=== PATIENT | male | born 1930 | race Caucasian/White ===

== ENCOUNTER 2017-04-22 10:56 | Outpatient (CLI) | payer MEDICARE, OTHER ==
--- NOTE | 2017-04-22 13:05 | RAD ---
CHEST PA AND LATERAL: History: 86-year-old male with dyspnea. Comparison: 10-22-16 FINDINGS: Marked hyperinflation and chronic lung changes. Atherosclerosis of the aorta with some ectasia. No co nfluent pneumonia, overt edema, or pleural effusion. IMPRESSION: Marked stable hyperinflation and chronic lung changes. No acute evidence of intrathoracic disease. POS: [facility]
== END 2017-04-22 10:57 | disposition home or self-care (01) ==
LOC: RAD 10:56
PROVIDERS: ATTEND Internal Medicine Critical Care Medicine
DX: R06.00 Dyspnea, unspecified (principal); J98.4 Other disorders of lung
CPT/HCPCS: 71020

== ENCOUNTER 2018-02-25 11:15 | Outpatient (CLI) | payer MEDICARE, OTHER ==
--- NOTE | 2018-02-25 11:54 | RAD ---
CHEST TWO VIEWS: HISTORY: Dyspnea. COMPARISON: 04/22/2017 FINDINGS: Heart size is within normal limits. There are atherosclerotic changes of the aorta. The lungs show some chronic change. There is kyphotic deformity to the spine. Flattening of the hemidiaphragms is present. IMPRESSION: Stable overall examination. POS: [facility]
== END 2018-02-25 11:16 | disposition home or self-care (01) ==
LOC: RAD 11:15
PROVIDERS: ATTEND Internal Medicine Critical Care Medicine
DX: R06.00 Dyspnea, unspecified (principal)
CPT/HCPCS: 71046

== ENCOUNTER 2018-10-02 10:30 | Outpatient (CLI) | payer MEDICARE, OTHER ==
[2018-10-02] MEDS ORDERED: Gadobenate Dimeglumine 529 MG/1 ML (20ML VIAL) ONE (11:04)
--- NOTE | 2018-10-02 13:07 | MRI ---
MRI Abdomen W WO Con History: [D 30.00 benign neoplasm of kidney unspecified] Comparison: CT abdomen and pelvis without contrast 2016 Findings: Moderate sliding hiatal hernia. Spleen is unremarkable. Aortic contour is nonaneurysmal. There is focal ectasia of the main pancreatic duct with an internal septation. A benign fat-containing mass interpolar left kidney is similar in size to the examination from 2010. Mild prominence of the right renal collecting system without hydroureter. No abnormal renal enhancing mass. Liver is unremarkable. Spleen is unremarkable. Adrenal glands are unremarkable. Levoscoliosis lumbar spine. No retroperitoneal adenopathy. No dilated loops of bowel the upper abdomen. Impression: 1. 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 2. Focal ectasia of the pancreatic duct at the pancreatic head with a single internal septation. Give n patient age, no follow-up is required although if clinically warranted, follow-up MRI can be performed in one year. Mesentery. Moderate size sliding hiatal hernia. 4. Mild prominence of the right renal collecting system, similar to prior examinations, without hydro ureter.
== END 2018-10-02 10:31 | disposition home or self-care (01) ==
LOC: BICMRI 10:30
PROVIDERS: ATTEND Urology
DX: D30.02 Benign neoplasm of left kidney (principal); K44.9 Diaphragmatic hernia without obstruction or gangrene; K86.89 Other specified diseases of pancreas
CPT/HCPCS: 74183; 82565; A9577

== ENCOUNTER 2019-01-12 14:20 | Inpatient (IN) | payer MEDICARE, OTHER ==
[2019-01-12 14:59] LABS: #Lymphocytes 1.3 thou/uL (1.20-3.40); #Monocytes 1.8 thou/uL (0.11-0.59); #Neutrophils 16.7 thou/uL (1.40-6.50); %Basophils 0.1 % (0.0-1.0); %Eosinophils 0.2 % (0.0-10.0); %Lymphocytes 6.4 % (21.0-51.0); %Neutrophils 84.3 % (42.0-75.0); Hemoglobin 15.8 g/dL (14.0-18.0); Mean Corpuscular HGB CONC 33.1 g/dL (32.0-36.0); Mean Corpuscular Hemoglobin 27.9 pg (27.0-31.0); Mean Corpuscular Volume 84.1 fL (78.0-98.0); Mean Platelet Volume 6.8 fL (7.4-10.4); Platelet Count 258 thou/uL (130-400); RBC Distribution Width 13.3 % (11.5-14.5); Red Blood Cell (RBC) Count 5.68 mill/uL (4.70-6.10); White Blood Cell (WBC) Count 19.8 thou/uL (4.8-10.8)
--- NOTE | 2019-01-12 15:17 | RAD ---
EXAM: Chest PA and lateral: HISTORY: Pharyngitis. COMPARISON: 02/25/2018 FINDINGS: Heart: Normal cardiac silhouette Aorta: Elongation of the aorta, unchanged Pulmonary vessels: Normal Costophrenic angles: Costophrenic angles are clear. Lungs: Inflation, chronic changes. Calcified granuloma in the left infrahilar region. Pneumothorax: No pneumothorax Osseous structures: No acute osseous abnormalities. IMPRESSION: 1. Hyperinflation. Chronic changes.
[2019-01-12 15:18] LABS: Anion Gap 16 mmol/L (10-20); BUN (Urea Nitrogen) 14 mg/dL (8.4-25.7); Calc. Creatinine Clearance 0 mL/min (70-130); Carbon Dioxide 19 mmol/L (23-31); Chloride 107 mmol/L (98-107); Estimated GFR-MDRD 61; Glucose 114 mg/dL (83-110); Sodium 138 mmol/L (136-145)
[2019-01-12] MEDS ORDERED: Ampicillin/Sulbactam 3 GM in Sodium Chloride 0.9% 100 ML IVPB ONE (16:30)
[2019-01-12 16:39] LABS: Bacteria/HPF None Seen HPF (None Seen); Bilirubin Negative (Negative); Blood, Urine 2+ (Negative); Clarity Clear (Clear); Glucose, Urine (Dipstick) Normal (Negative); Leukocyte Negative Leu/uL (Negative); Mucous/LPF 1+ LPF (<2+); Nitrite Negative (Negative); Protein, Urine (Dipstick) 100 mg/dL (Neg-Trace); RBC/HPF 0-3 HPF (0-3); Squamous Epithelial 0-3 HPF (0-3); Urobilinogen Normal mg/dL (Less than 2)
[2019-01-12 20:52] LABS: Lactic Acid 1.5 mmol/L (0.5-2.2)
[2019-01-12] MEDS ORDERED: Ondansetron PF 4 MG/2 ML Vial IVP PRN (21:27)
[2019-01-12] MEDS ORDERED: cloNIDine 0.1 MG TAB PO PRN (21:27)
[2019-01-12] MEDS ORDERED: Bisacodyl 10 MG SUPP PR PRN (21:27)
[2019-01-12] MEDS ORDERED: Sodium Chloride 0.65% Nasal 44 ML BOT EA NARE PRN (21:27)
[2019-01-12] MEDS ORDERED: hydrALAZINE 20 MG/ML VIAL SLOW IVP PRN (21:27)
[2019-01-12] MEDS ORDERED: Senokot S 8.6-50 MG TAB PO PRN (21:27)
[2019-01-12] MEDS ORDERED: Diabetic Tussin 200 MG/10 ML UDCUP PO PRN (21:27)
[2019-01-12] MEDS ORDERED: Acetaminophen 325 MG TAB PO PRN (21:27)
[2019-01-12] MEDS ORDERED: Artificial Tears 18 DROP/0.9 ML EA EYE PRN (21:27)
[2019-01-12] MEDS ORDERED: Ondansetron ODT 4 MG TAB PO PRN (21:27)
[2019-01-12] MEDS ORDERED: Zolpidem Tartrate 5 MG TAB PO PRN (21:27)
[2019-01-12] MEDS ORDERED: HYDROcodone/Acetaminophen 5/325 mg Tablet PO PRN (21:27)
[2019-01-12] MEDS ORDERED: Cepastat Lozenges 1 LOZ PO PRN (21:27)
[2019-01-12] MEDS ORDERED: Loperamide HCl 2 MG CAP PO PRN (21:27)
[2019-01-12] MEDS ORDERED: Labetalol HCl 100 MG/20 ML VIAL SLOW IVP PRN (21:27)
[2019-01-12] MEDS ORDERED: Vancomycin HCl 1.5 GM in Sodium Chloride 0.9% 250 ML 300 ML IVPB SCH (22:15)
[2019-01-12 22:22] VITALS: BMI 24.1
--- NOTE | 2019-01-12 22:37 | HP ---
PRIMARY CARE PHYSICIAN: Chelle Morelos MD REASON FOR ADMISSION: Aspiration pneumonia. HISTORY OF PRESENT ILLNESS: This is an 88-year-old male, who has gastroesophageal reflux disease. The patient has chronic cough productive of yellowish green sputum. Lately, his cough significantly increased. He was experiencing shortness of breath. As per report, the patient had radiation therapy. As the patient was having increasing amount of cough and shortness of breath and that is why he was trying to see his primary care physician, but the patient was sent to emergency room for evaluation. The patient was having significant amount of productive cough. The patient appeared chronically ill. He was hard of hearing. History was very limited from the patient. He was febrile in the emergency room. He was tachycardic, hypertensive, but saturating normal. His chest x-ray showed chronic changes without any acute process. The patient reported that lately, he was having upper respiratory infection with runny nose and sore throat. REVIEW OF SYSTEMS: CONSTITUTIONAL: Negative for weight loss or gain, ability to conduct usual activities. SKIN: Negative for rash, itching. EYES: Negative for double vision, pain. ENT/MOUTH: Negative for nose bleeding, neck stiffness, pain, tenderness. CARDIOVASCULAR: Negative for palpitations, dyspnea on exertion, orthopnea. RESPIRATORY: Negative for shortness of breath, wheezing, cough, hemoptysis, fever or night sweats. GASTROINTESTINAL: Negative for poor appetite, abdominal pain, heartburn, nausea, vomiting, constipation, or diarrhea. GENITOURINARY: Negative for urgency, frequency, dysuria, nocturia. MUSCULOSKELETAL: Negative for pain, swelling. NEUROLOGIC/PSYCHIATRIC: Negative for anxiety, depression. ALLERGY/IMMUNOLOGIC: Negative for skin rash, bleeding tendency. Please see my HPI for pertinent positives and negatives. All other review of systems reviewed and negative except as mentioned in the HPI. PAST MEDICAL HISTORY: Osteoarthritis, sensorineural deafness, gastroesophageal reflux disease, irritable bowel syndrome, history of prostate cancer, treated with radiation in 2002 and history of nephrolithiasis. PAST SURGICAL HISTORY: Left kidney cryoablation in 2006. PAST PSYCHIATRIC HISTORY: Reviewed and negative. SOCIAL HISTORY: The patient lives at home. No history of tobacco, alcohol, or illicit drug abuse. FAMILY HISTORY: Nothing significant for coronary artery disease, stroke, or cancer. ALLERGIES: H2 MARLIN, INFLUENZA VACCINE, PROTONIX AND SULFA DRUGS. CURRENT HOME MEDICATIONS: The patient is taking Tums for his acid reflux. The patient does not have any medication with him and that is why unable to review at this point. EMERGENCY ROOM COURSE: The patient was given Unasyn and IV fluid. PHYSICAL EXAMINATION: VITAL SIGNS: On arrival, blood pressure 160/102, pulse 115, respiratory rate 20, temperature 100.1, saturation 95% on room air. Weight 80.7 kg. GENERAL: The patient is currently alert, awake, chronically ill, no obvious acute distress. Hard of hearing. HEENT: Head; normocephalic, atraumatic. Eyes; pupils round and reactive to light. Extraocular muscle intact. ENT, oropharynx within normal limits. Moist mucous membranes. No oral lesion. No pharyngeal erythema. No exudate. NECK: Supple. No JVD. No thyromegaly. No carotid bruit. No jugular venous distention. LUNGS: Coarse breath sounds noted. No obvious rhonchi or rales. No accessory muscles of respiration in use. CARDIAC: S1, S2 appears regular. No murmur. No gallop. No rub. ABDOMEN: Soft. Bowel sounds present. Nontender. Nondistended. No organomegaly. No mass. No suprapubic tenderness. BACK: Unremarkable. No CVA tenderness. EXTREMITIES: Upper extremities; passive movement of all joints are normal. Lower extremities, chronic skin changes with hyperpigmentation noted on both lower extremities. Good distal pulsation. PSYCHIATRIC: Normal affect. NEUROLOGIC: Nonfocal examination. SIGNIFICANT LABORATORY DATA: Chest x-ray showing hyperinflation and chronic changes. CBC; WBC 19.9, hemoglobin 15.8, platelet count 258. Sodium 138, potassium 4.0, chloride 107, carbon dioxide 19, BUN 14, creatinine 1.14, glucose 114, calcium 10.0, lactic acid 2.5. Troponin less than 0.010. BNP 30.4. Urinalysis; wbc's 11-20. Streptococcal screen negative. Influenza screen negative. ASSESSMENT AND PLAN: 1. Sepsis. 2. Aspiration pneumonia/bronchitis. 3. Gastroesophageal reflux disease. 4. Sensorineural deafness. 5. Osteoarthritis. 6. History of prostate cancer. 7. History of nephrolithiasis. 8. Irritable bowel syndrome. PLAN: Admission to medical floor, vancomycin and Zosyn, IV fluid at 125 mL/h. Blood pressure control with clonidine, hydralazine, and labetalol on p.r.n. basis, Tums for gastroesophageal reflux disease. We will repeat labs tomorrow. Follow up on culture result. Deep venous thrombosis prophylaxis, Lovenox 40 mg subcutaneous daily. Gastrointestinal prophylaxis, Tums q.4 hourly p.r.n. Speech therapy evaluation. CODE STATUS: The patient is full code. DISPOSITION PLAN: Based on clinical course, we are expecting the patient's stay in hospital more than 2 midnights. Plan of care discussed with the patient in detail. Job ID: [id number]
[2019-01-12] MEDS: Calcium Carbonate 500 MG ChewTAB PO PRN (22:41)
[2019-01-12] MEDS: Sodium Chloride 0.45% 1,000 ML IV SCH (22:52)
[2019-01-12] MEDS: Piperacillin/Tazobactam 3.375 GM in Sodium Chloride 0.9% 100 ML IVPB SCH (23:55)
[2019-01-13 04:54] LABS: #Monocytes 1.4 thou/uL (0.11-0.59); %Basophils 0.1 % (0.0-1.0); %Eosinophils 0.3 % (0.0-10.0); %Lymphocytes 6.7 % (21.0-51.0); %Monocytes 9.4 % (0.0-10.0); %Neutrophils 83.5 % (42.0-75.0); Hemoglobin 13.8 g/dL (14.0-18.0); Mean Corpuscular HGB CONC 31.1 g/dL (32.0-36.0); Mean Corpuscular Hemoglobin 26.3 pg (27.0-31.0); Mean Corpuscular Volume 84.8 fL (78.0-98.0); Mean Platelet Volume 7.5 fL (7.4-10.4); Platelet Count 216 thou/uL (130-400); RBC Distribution Width 13.2 % (11.5-14.5); Red Blood Cell (RBC) Count 5.24 mill/uL (4.70-6.10); White Blood Cell (WBC) Count 14.4 thou/uL (4.8-10.8)
[2019-01-13 05:08] LABS: Lactic Acid 2.2 mmol/L (0.5-2.2)
[2019-01-13] MEDS: Sodium Chloride 0.45% 1,000 ML IV SCH (05:08)
[2019-01-13 05:14] LABS: ALT (SGPT) 19 U/L (8-55); AST (SGOT) 29 U/L (5-34); Albumin 3.6 g/dL (3.4-4.8); Alkaline Phosphatase 79 U/L (40-150); Anion Gap 13 mmol/L (10-20); BUN (Urea Nitrogen) 13 mg/dL (8.4-25.7); Bilirubin, Total 1.5 mg/dL (0.2-1.2); Calc. Creatinine Clearance 58 mL/min (70-130); Calcium 9.3 mg/dL (7.8-10.44); Carbon Dioxide 20 mmol/L (23-31); Chloride 107 mmol/L (98-107); Estimated GFR-MDRD 72; Globulin 2.7 g/dL (2.4-3.5); Glucose 109 mg/dL (83-110); Potassium 4.1 mmol/L (3.5-5.1); Protein, Total 6.3 g/dL (5.8-8.1); Sodium 136 mmol/L (136-145)
[2019-01-13] MEDS: Piperacillin/Tazobactam 3.375 GM in Sodium Chloride 0.9% 100 ML IVPB SCH ×3 (05:26→17:03)
[2019-01-13] MEDS: Saccharomyces boulardii 250 MG CAP PO SCH (07:51)
[2019-01-13] MEDS: Enoxaparin Sodium 40 MG/0.4 ML SYRINGE SC SCH (07:51)
[2019-01-13] MEDS ORDERED: Prevnar 13-Val Conj/PF 0.5 ML SYRINGE IM ONE (09:00)
[2019-01-13] MEDS ORDERED: Benzonatate 100 MG CAP PO PRN (10:28)
[2019-01-13] MEDS ORDERED: predniSONE 20 MG TAB PO SCH (12:00)
--- NOTE | 2019-01-13 12:57 | CON ---
DATE OF CONSULTATION: 01/13/2019 SERVICE: Pulmonary Medicine. REASON FOR CONSULTATION: Pneumonia. HISTORY OF PRESENT ILLNESS: The patient is an 88-year-old white male with past medical history significant for a vocal cord growth. He underwent radiation for that about 3 to 4 years ago. Since that time, he has had intermittent episodes of cough, and bringing up purulent sputum. Typically lasts for 4 or 5 days. Sometimes requires antibiotics and other times it does not. That being said, at this time , it has been worse than it ever has been previously. It started on Friday evening. He notes he has started coughing up similar to prior, but it escalated to the point , where it bring up cupfuls of purulent green sputum on a daily basis. He called his primary care physician, but could not get in and was directed to the Emergency Department. On seeing how much stuff he was coughing up, he was subsequently admitted to the hospital. Overnight, he got Zosyn and vancomycin. The amount of sputum has significantly decreased. He denies any fevers or chills. He was not having any hemoptysis or night sweats. He showed me the bag that he was coughing up into. It was nearly full of very purulent green slimy fluid/sputum. It was quite thick and tenacious. PAST MEDICAL HISTORY: 1. 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 2. Gastroesophageal reflux disease with hiatal hernia. 3. Irritable bowel syndrome. 4. Prostate cancer. 5. History of nephrolithiasis. 6. Osteoarthritis. 7. Sensorineural hearing deficit. PAST SURGICAL HISTORY: Left kidney cryoablation. SOCIAL HISTORY: He denies any alcohol, tobacco, or illicit drug use. He takes care of himself and lives at home. He is fully independent in his ADLs. He has no exposure to chemicals, dust, asbestos, or tuberculosis. FAMILY HISTORY: Noncontributory. ALLERGIES: H2 BLOCKERS, INFLUENZA VACCINE, PROTONIX, AND SULFA. MEDICATIONS: List of his inpatient medications was reviewed. No specific updates were made. REVIEW OF SYSTEMS: General, head, ears, eyes, nose, throat, cardiovascular, respiratory, GI, , musculoskeletal, neurologic, and skin are negative except as mentioned in the HPI. PHYSICAL EXAMINATION: VITAL SIGNS: Afebrile, pulse 91, blood pressure 112/63, respirations 20, and saturation 93%, currently on room air. GENERAL: The patient is awake and alert, no apparent distress. LUNGS: There is decreased air entry and a prolonged expiratory phase. I do not appreciate any wheezing, though rhonchi are noted. No crackles. HEART: Normal rate. Regular. ABDOMEN: Soft, nontender, and nondistended. Bowel sounds are positive. MUSCULOSKELETAL: No cyanosis or clubbing. There is no pitting in the bilateral lower extremities. NEUROLOGIC: Grossly nonfocal. LABORATORY DATA: WBC 14.4, hemoglobin 13.8, and platelets 216,000. His white blood cell count seems to be downtrending. INR 1.1. Basic metabolic profile and liver function studies are essentially unremarkable other than a minimally elevated bilirubin of 1.5. Lactate was originally 2.5 and has downtrended 2.2. Troponin is negative x1, BNP is unremarkable. Urinalysis is positive for minimal ketonuria and small amount of blood, though the red blood cells are unremarkable. IMAGING: Chest x-ray demonstrates no obvious acute cardiopulmonary abnormality are present. He does have TRAM tracking lines, suggestive of bronchiectasis. I do not see any pleural effusions or interstitial changes. I went back to review any type of CT of the chest that he has had. He did have a CT of the belly, remotely in 2017. At that point, there was no significant bronchiectasis that could be identified though the cuts did go high enough to identify anything centrally or posteriorly. Emphysema was appreciated on that study. ASSESSMENT: 1. Tracheobronchitis with copious sputum production. 2. Bronchiectasis, possible. 3. Severe sepsis, resolving. 4. 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 5. History of radiation to the head and neck for vocal cord growth. DISCUSSION AND PLAN: I will initiate low doses of steroids. We will continue our antibiotics for the time being. Gram stain and culture will be obtained from the sputum aspirate. I will also do a CT scan, specifically looking to see if he has significant central bronchiectasis. If present, he may need physiotherapy in the outpatient setting. Dr. Caceres has an established relationship with Mr. Bolton. As such, he will be taking over care tomorrow. Please call with additional questions or concerns through time. 70 minutes have been devoted to this patient in various activities. I personally reviewed all imaging studies and laboratory data noted within this document. For fifty percent of this time, I was interacting with the patient at the bedside or coordinating care with the care team. For the remainder of the time I was immediately available to the patient in the hospital unit. Job ID: [id number] MTDD
--- NOTE | 2019-01-13 14:18 | CT ---
CT CHEST NONCONTRAST: HISTORY: Productive cough. Bronchiectasis. COMPARISON: 03/30/2013. FINDINGS: Lungs are hyperinflated. Moderate linear scarring at the lung bases. Scattered emphysematous bullae . Areas of spiculated scarring in the left lower lobe with central calcification is unchanged from 2012 exam. Very mild alveolar infiltrate at the right posterior costophrenic angle. Minimal dila tation of the distal bronchi in medial aspect of each lower lobe. Airways are patent. Lack of contrast limits evaluate of the soft tissues. Exam was not performed as high-resolution technique. Hiatal hernia. Calcification within the arterial structures. No bulky mediastinal adenopathy. Hyperdense stone in the gallbladder lumen. Calcified lesion of the lateral cortex of the left kidney is stable. Degenerative changes of the thoracolumbar spine. IMPRESSION: 1. Minimal right posterior basilar infiltrate. No segmental consolidation. 2. Minimal tubular bronchiectasis at the medial aspect of each posterior lung base. Likely related to recurrent inflammation. 3. Pulmonary hyperinflation and significant bilateral scarring are stable. 4. Atherosclerosis. 5. Cholelithiasis. 6. Chronic-type findings are stable. POS: [facility]
--- NOTE | 2019-01-13 15:07 | RAD ---
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 Feeding difficulties. FINDINGS/IMPRESSION: There is laryngeal penetration and aspiration. Residue is seen in the vallecula after repeated swallo ws. Please see recommendations of the speech therapist for further management. POS: [facility]
--- NOTE | 2019-01-13 16:47 | PDOC.HOSPP ---
- Subjective Encounter Date: 01/13/19 Encounter Time: 09:20 Subjective: Pt seen for followup re; tracheobronchitis. Says he feels better. - Objective Vital Signs & Weight: Vital Signs (12 hours) Temp Pulse Resp BP Pulse Ox 01/13/19 11:00 98.6 F 91 20 112/63 93 L 01/13/19 08:00 94 L 01/13/19 07:42 98.3 F 96 18 116/59 L 94 L 01/13/19 07:08 94 16 95 Weight Weight 173 lb I&O: 01/12/19 01/13/19 01/14/19 06:59 06:59 06:59 Intake Total 1550 Balance 1550 Result Diagrams: 01/13/19 04:26 01/13/19 03:30 Additional Labs: Labs and MARs reviewed by nv Hospitalist ROS - Review of Systems Respiratory: reports: cough, sputum. denies: dry, shortness of breath, hemoptysis, SOB with excertion, pleuritic pain, wheezing Cardiovascular: denies: chest pain, palpitations, orthopnea, paroxysmal noc. dyspnea, edema, light headedness - Medication Medications: Active Medications Generic Name Dose Route Start Last Admin Trade Name Freq PRN Reason Stop Dose Admin Acetaminophen 650 mg 01/12/19 21:27 01/12/19 22:56 Tylenol PO 650 mg Q4H PRN Administration Headache/Fever/Mild Pain (1-3) Albuterol/Ipratropium 3 ml 01/13/19 01:00 01/13/19 13:31 Duoneb NEB Not Given [id number] PRETTY Calcium Carbonate 1,000 mg 01/12/19 21:27 01/12/19 22:41 Tums PO 1,000 mg Q4H PRN Administration Heartburn or Indigestion Clonidine 0.1 mg 01/12/19 21:27 01/12/19 22:56 Catapres PO 0.1 mg Q4H PRN Administration SBP GREATER THAN 160 Enoxaparin Sodium 40 mg 01/13/19 09:00 01/13/19 07:51 Lovenox SC 40 mg 0900 PRETTY Administration Guaifenesin 200 mg 01/12/19 21:27 01/12/19 22:52 Robitussin Sf PO 200 mg Q4H PRN Administration Cough Piperacillin Sod/Tazobactam 100 mls @ 200 mls/hr 01/12/19 23:59 01/13/19 11: 41 Sod 3.375 gm/ Sodium Chloride IVPB 100 mls Q6HR PRETTY Administration Saccharomyces Boulardii 250 mg 01/13/19 09:00 01/13/19 07:51 Florastor PO 250 mg DAILY PRETTY Administration Sodium Chloride 10 ml 01/13/19 09:00 01/13/19 07:51 Flush - Normal Saline IVF 10 ml Q12HR PRETTY Administration - Exam General Appearance: NAD Eye: anicteric sclera ENT: moist mucosa Neck: supple Heart: RRR Respiratory: CTAB Gastrointestinal: soft Extremities: no clubbing Neurological: no weakness Psychiatric: normal affect, normal behavior Hosp A/P (1) Tracheobronchitis Code(s): J40 - BRONCHITIS, NOT SPECIFIED ACUTE OR CHRONIC Status: Acute (2) COPD exacerbation Code(s): J44.1 - CHRONIC OBSTRUCTIVE PULMONARY DISEASE W (ACUTE) EXACERBATION Status: Acute (3) GERD (gastroesophageal reflux disease) Code(s): K21.9 - GASTRO-ESOPHAGEAL REFLUX DISEASE WITHOUT ESOPHAGITIS Status: Chronic (4) IBS (irritable bowel syndrome) Status: Chronic - Plan continue antibiotics, out of bed/ambulate continue IV Zosyn and vancomycin. Speech therapy eval/treat. Consult pulmonology. Continue staroids and bronchodilators. Consult walking program. PRN Tums for heartburn.
[2019-01-13] MEDS: Sodium Chloride 0.9% 1,000 ML IV SCH (17:01)
[2019-01-13] MEDS: Calcium Carbonate 500 MG ChewTAB PO PRN ×2 (18:11→21:57)
[2019-01-13] MEDS ORDERED: Vancomycin HCl 1.5 GM in Sodium Chloride 0.9% 250 ML 300 ML IVPB SCH (22:00)
[2019-01-14] MEDS: Piperacillin/Tazobactam 3.375 GM in Sodium Chloride 0.9% 100 ML IVPB SCH ×2 (00:35→05:17)
[2019-01-14] MEDS: Calcium Carbonate 500 MG ChewTAB PO PRN (01:51)
[2019-01-14] MEDS: Sodium Chloride 0.9% 1,000 ML IV SCH (05:18)
[2019-01-14 06:46] LABS: #Basophils 0.1 thou/uL (0.0-0.2); #Lymphocytes 0.5 thou/uL (1.20-3.40); #Monocytes 0.9 thou/uL (0.11-0.59); #Neutrophils 8.9 thou/uL (1.40-6.50); %Basophils 0.7 % (0.0-1.0); %Eosinophils 0.1 % (0.0-10.0); %Lymphocytes 4.7 % (21.0-51.0); %Monocytes 8.8 % (0.0-10.0); %Neutrophils 85.7 % (42.0-75.0); Hemoglobin 12.7 g/dL (14.0-18.0); Mean Corpuscular HGB CONC 33.4 g/dL (32.0-36.0); Mean Corpuscular Hemoglobin 27.9 pg (27.0-31.0); Mean Corpuscular Volume 83.3 fL (78.0-98.0); Mean Platelet Volume 7.7 fL (7.4-10.4); Platelet Count 180 thou/uL (130-400); RBC Distribution Width 13.1 % (11.5-14.5); Red Blood Cell (RBC) Count 4.57 mill/uL (4.70-6.10); White Blood Cell (WBC) Count 10.4 thou/uL (4.8-10.8)
[2019-01-14 07:15] LABS: Anion Gap 13 mmol/L (10-20); BUN (Urea Nitrogen) 12 mg/dL (8.4-25.7); Calc. Creatinine Clearance 60 mL/min (70-130); Calcium 9.5 mg/dL (7.8-10.44); Carbon Dioxide 21 mmol/L (23-31); Chloride 109 mmol/L (98-107); Estimated GFR-MDRD 74; Glucose 116 mg/dL (83-110); Potassium 3.9 mmol/L (3.5-5.1); Sodium 139 mmol/L (136-145)
[2019-01-14] MEDS ORDERED: predniSONE 20 MG TAB PO SCH (08:00)
[2019-01-14] MEDS: Enoxaparin Sodium 40 MG/0.4 ML SYRINGE SC SCH (08:47)
[2019-01-14] MEDS: Saccharomyces boulardii 250 MG CAP PO SCH (08:47)
[2019-01-14] MEDS ORDERED: Amoxicillin/Potassium Clav 875 MG TAB PO SCH ×2 (11:15→21:00)
--- NOTE | 2019-01-14 11:42 | PRG ---
DATE OF SERVICE: 01/14/2019 SUBJECTIVE: Dylan Bolton has no complaints. His cough and sputum production improved dramatically. OBJECTIVE: VITAL SIGNS: He is afebrile, heart rate is 96, oximetry is 94% on room air, blood pressure 104/68. GENERAL: He is absolutely in no distress. LUNGS: Clear. HEART: Regular rhythm. ABDOMEN: Soft. HEENT: He does have swallowing issues, which is not surprising since he had radiation to his throat 3 years ago. IMPRESSION: 1. Bronchitis. 2. Swallowing dysfunction. 3. Deconditioning. PLAN: P.o. antibiotics. My opinion would be reasonable to discharge him home. I will follow up with him in office next week. Job ID: [id number]
[2019-01-14 17:41] VITALS: BP 163/105; TEMP 98.3
--- NOTE | 2019-01-15 13:07 | DIS ---
DATE OF ADMISSION: 01/12/2019 DATE OF DISCHARGE: 01/14/2019 PRIMARY CARE PROVIDER: Chelle Morelos MD DISCHARGE DIAGNOSES: 1. Sepsis. 2. Tracheobronchitis. 3. Chronic obstructive pulmonary disease exacerbation. 4. Pneumonia, likely aspiration pneumonia. 5. Bronchiectasis. CONDITION: Condition of patient on the day of discharge, stable. I assessed Mr. Bolton on the day of discharge. He denies any chest pain or shortness of breath. Vital signs are stable. S1 and S2 are heard, regular. Lungs are clear to auscultation bilaterally. FOLLOWUP APPOINTMENTS: The patient is advised to follow up with primary care provider. DISCHARGE MEDICATIONS: Augmentin 875 mg 2 times a day for 1 week, prednisone 40 mg daily for 3 more days. CONSULTATIONS DURING THIS HOSPITALIZATION: Pulmonology, Dr. Puga, patient was also seen by Dr. Caceres. HOSPITAL COURSE: Mr. Bolton is a pleasant 88-year-old gentleman, who was admitted to [facility] on January 14, 2019, for sepsis, likely secondary to tracheobronchitis and aspiration pneumonia. He was treated with intravenous antibiotics, subsequently stepped down to oral antibiotics. He was seen by Speech Therapy. He had a swallow eval. Because of aspiration risk, he was advised diet modifications by Speech Therapy. He improved clinically. He has been cleared for discharge by Pulmonary/Critical Care Medicine Service. He is being discharged home in a stable condition. On the day of discharge, he has white count 99659, hemoglobin 12.7, platelet count 180,000. Sodium 139, potassium 3.9, and creatinine 0.96. Many thanks for allowing me to participate in your patient's care. Please feel free to contact me with any questions or concerns. DISCHARGE DESTINATION: Home. TIME SPENT: Total amount of time spent coordinating this discharge, 31 minutes. Job ID: [id number]
== END 2019-01-14 18:15 | disposition home or self-care (01) | DRG 177 ==
LOC: ERS 14:20 → ERHOLD 21:13 → T4-A 21:25
PROVIDERS: ADMIT Internal Medicine; ATTEND Internal Medicine
DX: J69.0 Pneumonitis due to inhalation of food and vomit (principal); A41.9 Sepsis, unspecified organism; R65.20 Severe sepsis without septic shock; J44.1 Chronic obstructive pulmonary disease with (acute) exacerbation; J20.8 Acute bronchitis due to other specified organisms; K21.9 Gastro-esophageal reflux disease without esophagitis; M19.91 Primary osteoarthritis, unspecified site; H90.5 Unspecified sensorineural hearing loss; K58.9 Irritable bowel syndrome, unspecified; Z85.46 Personal history of malignant neoplasm of prostate; Z98.890 Other specified postprocedural states; Z88.0 Allergy status to penicillin; Z88.2 Allergy status to sulfonamides; Z87.442 Personal history of urinary calculi
CPT/HCPCS: 36415; 71046; 71250; 74230; 80048; 80053; 81003; 81015; 83605; 83880; 84484; 85025; 87070; 87081; 87205; 87430; 87804; 90471; 90670; 93005; 94640; 94667; 94668; 96361; 96365; G0009; J0295; J1650; J2543; J3370; J3490; J7050; J7512; J7620

== ENCOUNTER 2019-09-17 13:36 | Outpatient (CLI) | payer MEDICARE ==
--- NOTE | 2019-09-17 15:22 | RAD ---
CHEST TWO VIEWS: 09/17/19 INDICATION: History of dyspnea. FINDINGS: COPD change is similar appearing. No pleural effusion or pneumothorax is evident. No acute osseous ab normality is noted. Comparison is made with prior dated 01/12/19. IMPRESSION: Stable COPD change. POS: [facility]
== END 2019-09-17 13:37 | disposition home or self-care (01) ==
LOC: RAD 13:36
PROVIDERS: ATTEND Internal Medicine Critical Care Medicine
DX: R06.00 Dyspnea, unspecified (principal); J44.9 Chronic obstructive pulmonary disease, unspecified
CPT/HCPCS: 71046

== ENCOUNTER 2019-12-14 10:34 | Outpatient (CLI) | payer MEDICARE ==
--- NOTE | 2019-12-14 13:17 | PET ---
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 COMPARISON: CT of the thorax dated March 30, [address] of the abdomen and pelvis dated December 27, 2016. FINDINGS: Biodistribution:The biodistribution for the exam appears acceptable. Head and neck: There is appropriate background activity within the brain. No hypermetabolic lymphaden opathy or masses identified. Thorax: No hypermetabolic pulmonary lesion, pleural effusion or lymphadenopathy is present. The spicu lated pulmonary nodule in the left lower lobe is stable to 2012 without associated hypermetabolic activity likely related to an area of central scarring in the left lower lobe. There is scattered emp hysema. Abdomen and pelvis: There is expected background activity within the GI and systems.There is a foc us of prominent hypermetabolic activity involving the right posterior lateral mid gland of the prostate. Peak SUV activity is 9.08 with a mean activity of 7.95. There is cholelithiasis. There is c alcified granuloma involving the liver and spleen. There is a moderate sized table hiatal hernia. There is a partially calcified fatty lesion involving the lateral margin of the left kidney. There is a large right inguinal hernia containing portions of the cecum, ascending colon, distal ileum and appendix. The hernia protrudes into the right hemiscrotum. Osseous structures and skin: No hypermetabolic skin or osseous lesion is identified. IMPRESSION: Abnormal PET/CT. 1. Focus of abnormal hypermetabolic activity involving the right posterior lateral aspect of the mid prostate gland is suspicious for prostate malignancy. Recommend consideration for MRI of the prostate for further characterization. 2. No hypermetabolic metastatic disease seen within the head neck, chest or abdomen. No hypermetaboli c skin or osseous metastatic disease demonstrated. 3. Large right inguinal hernia containing portions of the ascending colon, cecum, appendix and termin al ileum. 4. Moderate size hiatal hernia 5. Cholelithiasis and stable partially calcified fatty mass of the left mid kidney. 6. Stable scarring in the left lower lobe. Scattered emphysema
== END 2019-12-14 10:35 | disposition home or self-care (01) ==
LOC: PET 10:34
PROVIDERS: ATTEND Radiology Radiation Oncology
DX: C44.399 Other specified malignant neoplasm of skin of other parts of face (principal); C32.0 Malignant neoplasm of glottis; C61 Malignant neoplasm of prostate; C64.2 Malignant neoplasm of left kidney, except renal pelvis; K44.9 Diaphragmatic hernia without obstruction or gangrene; K80.20 Calculus of gallbladder without cholecystitis without obstruction; N28.89 Other specified disorders of kidney and ureter; K40.90 Unilateral inguinal hernia, without obstruction or gangrene, not specified as recurrent
CPT/HCPCS: 78815; A9552

== ENCOUNTER 2020-05-16 14:31 | Outpatient (CLI) | payer MEDICARE ==
--- NOTE | 2020-05-16 15:31 | ULT ---
RENAL ULTRASOUND: 05/16/20 INDICATION: History of lipomatous neoplasm. COMPARISON: Prior MRI of the abdomen with and without contrast dated 10/02/18. FINDINGS: The right kidney measures 9.5 x 4.5 x 5.2 cm. Left kidney measures 10.2 x 4.1 x 5.7 cm. Prevoid bladd er volume was 23 mL. There is a shadowing partially calcified mass along the exophytic margin of the left mid kidney likel y corresponding to the patient's known left renal angiomyolipoma. There is a small peripelvic cyst in volving the inferior pole of the right kidney measuring 1.4 cm. IMPRESSION: 1. Inferior pole right renal peripelvic cyst. 2. Shadowing, partially calcified, exophytic mass off the lateral margin left kidney likely sandy esponds to a partially calcified angiomyolipoma seen on a comparison CT of the abdomen and pelvis kina ed 12/27/14 and MRI of the abdomen with and without dated 10/02/18. POS: [facility]
== END 2020-05-16 14:32 | disposition home or self-care (01) ==
LOC: BICULT 14:31
PROVIDERS: ATTEND Urology
DX: D17.9 Benign lipomatous neoplasm, unspecified (principal); N28.1 Cyst of kidney, acquired; N28.89 Other specified disorders of kidney and ureter
CPT/HCPCS: 76770

== ENCOUNTER 2020-09-20 10:36 | Outpatient (CLI) | payer MEDICARE | END 2020-09-20 10:37 | disposition home or self-care (01) | LOC: BICRAD 10:36 | PROVIDERS: ATTEND Internal Medicine Critical Care Medicine | DX: R06.00 Dyspnea, unspecified (principal); I70.0 Atherosclerosis of aorta | CPT/HCPCS: 71046 ==

== ENCOUNTER 2021-05-02 09:05 | Outpatient (CLI) | payer MEDICARE | END 2021-05-02 09:06 | disposition home or self-care (01) | LOC: BICRAD 09:05 | PROVIDERS: ATTEND Student in an Organized Health Care Education/Training Program | DX: M54.50 Low back pain, unspecified (principal); G89.29 Other chronic pain; M47.816 Spondylosis without myelopathy or radiculopathy, lumbar region | CPT/HCPCS: 72100 ==